=== PATIENT | male | born 1940 | race Caucasian/White ===

== ENCOUNTER 2020-12-01 08:52 | Outpatient (CLI) | payer OTHER, MEDICARE ==
[2020-12-01] MEDS ORDERED: BARIUM SULFATE 135 ML SUSP.RECON (E-Z-HD) PO ONE (09:06)
== END 2020-12-01 20:41 | disposition home or self-care (01) ==
LOC: SRD 08:52
PROVIDERS: ATTEND Otolaryngology
DX: K22.8 Other specified diseases of esophagus (principal); R13.10 Dysphagia, unspecified
CPT/HCPCS: 74220-TC